=== PATIENT | female | born 1980 | race Two or more races ===

== ENCOUNTER 2016-05-29 15:31 | Emergency (ER) | payer OTHER ==
[~2016-05-29 15:31] MED LIST: DOXY100C2 PO; HYDR-971 PO; METHERGINE PO; NAPR500T8 PO; PNV1TABL25 PO
[2016-05-29 16:26] VITALS: BP 101/62
[2016-05-29] MEDS ORDERED: PRED20TA PO (16:32)
[2016-05-29] MEDS ORDERED: TRIA15OI TP (16:32)
--- NOTE | 2016-05-29 16:33 | PHYS DOC ---
Adult General Chief Complaint Chief Complaint: ITCHING HPI HPI Patient is a 35 year old who presents emergency Department stating rash on her lower back area down bilateral legs. She states she's had this rash for the last week. She denies new detergent, soaps, clothing or medication. Patient denies nausea, vomiting. Patient denies taking medication for the rash. Review of Systems Review of Systems Constitutional: Denies fever or chills [] Eyes: Denies change in visual acuity, redness, or eye pain [] HENT: Denies nasal congestion or sore throat [] Respiratory: Denies cough or shortness of breath [] Cardiovascular: No additional information not addressed in HPI [] GI: Denies abdominal pain, nausea, vomiting, bloody stools or diarrhea [] Musculoskeletal: Denies back pain or joint pain [] Integument: rash denies skin lesions [] Neurologic: Denies headache, focal weakness or sensory changes [] Allergies Allergies Allergies Coded Allergies Type Severity Reaction Last Updated Verified No Known Drug Allergies 07/27/14 No Physical Exam Physical Exam Constitutional: Well developed, well nourished, no acute distress, non-toxic appearance. [] HENT: Normocephalic, atraumatic, bilateral external ears normal, oropharynx moist, no oral exudates, nose normal. [] Eyes: PERRLA, EOMI, conjunctiva normal, no discharge. [] Neck: Normal range of motion, no tenderness, supple, no stridor. [] Cardiovascular:Heart rate regular rhythm, no murmur [] Lungs & Thorax: Bilateral breath sounds clear to auscultation [] Skin: Warm, dry, no erythema, Scabbed rash noted to the back area and bilateral lower legs. No drainage, discharge or redness noted to the sites. Back: No tenderness Extremities: No tenderness, no cyanosis, no clubbing, ROM intact, no edema. [] Neurologic: Alert and oriented X 3, normal motor function, normal sensory function, no focal deficits noted. [] Psychologic: Affect normal, judgement normal, mood normal. [] EKG EKG [] Radiology/Procedures Radiology/Procedures [] Course & Med Decision Making Course & Med Decision Making Pertinent Labs and Imaging studies reviewed. (See chart for details) Patient will be provided with prednisone, recommended benadryl over the counter as needed for itching. Recommended keeping the areas clean dry and cool. Patient will be discharged home in stable condition. Signs and symptoms to return to the emergency department has been provided. [] Dragon Disclaimer Dragon Disclaimer This electronic medical record was generated, in whole or in part, using a voice recognition dictation system. Departure Departure Impression: Primary Impression: Rash and nonspecific skin eruption Disposition: HOME, SELF-CARE Condition: STABLE Referrals: NO PCP (PCP) Patient Instructions: Rash, [id number] Additional Instructions: You have been evaluated for a rash Benadryl 25 mg every 4 hours as needed for itching Medication as prescribed Followup with primary care provider in 7-10 days Return to emergency department as needed for signs and symptoms that become worse. Scripts Triamcinolone Acetonide (Triamcinolone Acetonide 0.1% Oint)15 Gm Oint...g.1 Lauren TP BID WOUND CARE #1 TUBE Prov:LIDIA MCKOY NP 05/29/16 Prednisone 20 Mg [id number] Mg PO DAILY #10 TAB Prov:LIDIA MCKOY NP 05/29/16 LIDIA MCKOY NP May 29, 2016 16:33
== END 2016-05-29 16:41 | disposition home or self-care (01) ==
LOC: ER 15:31
DX: R21 Rash and other nonspecific skin eruption (principal)
CPT/HCPCS: 99283

== ENCOUNTER 2017-03-10 13:55 | Emergency (ER) | payer BC, OTHER ==
[~2017-03-10] VITALS: Ht 152.4 cm; Wt 49.0 kg
[~2017-03-10 13:55] MED LIST changes: +PRED20TA PO; +TRIA15OI TP
[2017-03-10 14:50] VITALS: BP 97/68
[2017-03-10] MEDS ORDERED: BENZ9GEL3 MM (15:26)
--- NOTE | 2017-03-10 15:26 | PHYS DOC ---
Past Medical History Past Medical History: No Pertinent History Past Surgical History: No Surgical History Alcohol Use: None Drug Use: None Adult General Chief Complaint Chief Complaint: DENTAL PROBLEM HPI HPI Patient is a 36 year old female presents to the ED complaining of sores in mouth x 1 week. States she has never had these before. Started on cheek and now has in upper lip. Describes as sharp. Rates as 8/10. Denies fever, nausea/ vomiting, difficulty swallowing, tongue swelling, headache or chest pain, shortness of breath. Review of Systems Review of Systems Constitutional: Denies fever or chills [] Eyes: Denies change in visual acuity, redness, or eye pain [] HENT: Denies nasal congestion or sore throat. Complains of sores in mouth. [] Respiratory: Denies cough or shortness of breath [] Cardiovascular: No additional information not addressed in HPI [] GI: Denies abdominal pain, nausea, vomiting, bloody stools or diarrhea [] : Denies dysuria or hematuria [] Musculoskeletal: Denies back pain or joint pain [] Integument: Denies rash or skin lesions [] Neurologic: Denies headache, focal weakness or sensory changes [] Endocrine: Denies polyuria or polydipsia [] Allergies Allergies Allergies Coded Allergies Type Severity Reaction Last Updated Verified No Known Drug Allergies 07/27/14 No Physical Exam Physical Exam Constitutional: Well developed, well nourished, no acute distress, non-toxic appearance. [] HENT: Normocephalic, atraumatic, bilateral external ears normal, oropharynx moist, ORAL ULCERS TO LEFT BUCCAL MUCOSA AND INNER UPPER LIP, nose normal. [] Eyes: PERRLA, EOMI, conjunctiva normal, no discharge. [] Neck: Normal range of motion, no tenderness, supple, no stridor. [] Cardiovascular:Heart rate regular rhythm, no murmur [] Lungs & Thorax: Bilateral breath sounds clear to auscultation [] Abdomen: Bowel sounds normal, soft, no tenderness, no masses, no pulsatile masses. [] Skin: Warm, dry, no erythema, no rash. [] Back: No tenderness, no CVA tenderness. [] Extremities: No tenderness, no cyanosis, no clubbing, ROM intact, no edema. [] Neurologic: Alert and oriented X 3, normal motor function, normal sensory function, no focal deficits noted. [] Psychologic: Affect normal, judgement normal, mood normal. [] Current Patient Data Vital Signs Vital Signs Date Time Temp Pulse Resp B/P (MAP) Pulse Ox O2 Delivery O2 Flow Rate FiO2 03/10/17 14:50 98.6 82 16 99 Room Air 98.6 EKG EKG [] Radiology/Procedures Radiology/Procedures [] Course & Med Decision Making Course & Med Decision Making Pertinent Labs and Imaging studies reviewed. (See chart for details) []Will prescribe oragel and Magic mouthwash for patient's relief. Discussed follow-up and reasons to return to the ED. Patient understands and agrees with plan. Family at bedside. Dragon Disclaimer Dragon Disclaimer This electronic medical record was generated, in whole or in part, using a voice recognition dictation system. Departure Departure Impression: Primary Impression: Aphthous ulcer Disposition: HOME, SELF-CARE Condition: STABLE Referrals: NO PCP (PCP) AMEENA FREY MD Patient Instructions: Oral Ulcers Scripts Benzocaine (ORAL ANALGESIC) 9 Gm Gel..gram. 9 GM MM PRN, #1 EACH Prov: DELPHINE PATTON 03/10/17 DELPHINE PATTON Mar 10, 2017 15:26
== END 2017-03-10 15:34 | disposition home or self-care (01) ==
LOC: ER 13:55
DX: K12.0 Recurrent oral aphthae (principal)
CPT/HCPCS: 99282

== ENCOUNTER → 2019-06-25 | Outpatient (CLI) | payer BC ==
[~2019-06-25] MED LIST changes: +BENZ9GEL3 MM; +HYDR-3164 PO; -HYDR-971 PO
--- NOTE | 2019-06-25 10:37 | RAD ---
EXAM: Obstetrics sonogram. HISTORY: Large for dates. TECHNIQUE: Sonographic imaging of a gravid uterus was performed. COMPARISON: None. FINDINGS: There is a single intrauterine fetus in breech presentation with a normal heart rate of 153 beats per minute. The amniotic fluid index is normal at 11.4 cm. There is an anterior placenta without evidence of placenta previa. The cervix is closed and measures 4.1 cm in length. The biparietal diameter is 3.63 cm, corresponding with 17 weeks and 1 day. The head circumference is 13.58 cm, corresponding with 17 weeks and 0 days. The abdominal sequential is 11.31 cm, corresponding with 17 weeks and 1 day. The femoral length is 2.40 cm, corresponding with 17 weeks and 2 days. The estimated gestational age patient combined also measurements is 17 weeks and 1 day and the estimated weight is 184 g. The estimated due date is 12/02/2019. IMPRESSION: 1. Single intrauterine fetus with normal heart rate and gestational age patient ultrasound measurements of 17 weeks and 1 day. The estimated gestational age based on LMP is 15 weeks and 0 days. 2. Note is made that a formal anatomy survey can be performed at 18-20 weeks gestation. Electronically signed by: Evelia Cardoza MD (06/25/2019 10:34 AM) [facility] [place]
== END | disposition home or self-care (01) ==
LOC: US 09:01
PROVIDERS: ATTEND Family Medicine
DX: O09.92 Supervision of high risk pregnancy, unspecified, second trimester (principal); O32.1XX0 Maternal care for breech presentation, not applicable or unspecified; Z3A.17 17 weeks gestation of pregnancy
CPT/HCPCS: 76815

== ENCOUNTER → 2019-10-22 | Outpatient (CLI) | payer OTHER ==
--- NOTE | 2019-10-22 17:31 | RAD ---
OB ultrasound greater than 14 weeks HISTORY: Third trimester, they'll p.m. 03/12/2019 corresponds with 32 weeks 0 day gestational age and estimated date confinement of December 17, 2019. Sonographic examination of the was performed by transabdominal technique multiple static images were obtained. FINDINGS: There is a single live intrauterine the heartbeat is confirmed at 141 beats for minute. Evaluation of structures is limited by the advanced gestational age. The maternal cervix appears normal measures 3.2 cm. The stomach appears normal. The amniotic fluid volume appears normal in fluid index measures 14.6 cm. There is a anterior placenta. The measurements as follows: BPD 7.7 cm 30 weeks 5 days Head circumference 27.5 cm 30 weeks 0 days Measurements 20.4 cm 30 weeks 3 days Femur length 6.5 cm 33 weeks 3 days Estimated size by ultrasound 31 weeks 5 days estimated confinement December 19, 2019. Estimated weight 4 lbs. 5 oz. +/- 10 ounces. Estimated weight percentile 49 percent. IMPRESSION: 1. Single live intrauterine at 32 weeks 0 days gestational age by LMP measures 31 weeks 5 days gestational age by ultrasound. 2. There has been less than expected growth since the June 25, 2019 ultrasound. Recommend high school english teacher consultation. Electronically signed by: Ori Andersen III, MD (10/22/2019 5:29 PM) [id number]
== END | disposition home or self-care (01) ==
LOC: US 13:48
PROVIDERS: ATTEND Family Medicine
DX: Z34.03 Encounter for supervision of normal first pregnancy, third trimester (principal); N83.202 Unspecified ovarian cyst, left side; Z90.710 Acquired absence of both cervix and uterus; Z90.721 Acquired absence of ovaries, unilateral
CPT/HCPCS: 76805

== ENCOUNTER 2019-11-26 06:06 | Inpatient (IN) | payer OTHER ==
[~2019-11-26] VITALS: Ht 152.4 cm; Wt 59.9 kg
[2019-11-26] MEDS ORDERED: BUTORPHANOL 2 MG/ML VIAL. IVP PRN (06:15)
[2019-11-26] MEDS ORDERED: ACETAMINOPHEN 325 MG TABLET. PO PRN (06:15)
[2019-11-26] MEDS ORDERED: TERBUTALINE 1 MG/ML VIAL. SQ PRN (06:15)
[2019-11-26] MEDS ORDERED: LIDOCAINE 1% PF 30 ML VIAL. INJ PRN (06:15)
[2019-11-26] MEDS ORDERED: ONDANSETRON PF 4 MG/2 ML VIAL. IVP PRN (06:15)
[2019-11-26] MEDS ORDERED: 0.9 % SODIUM CHLORIDE 10 ML DISP.SYRIN. IV PRN (06:15)
[2019-11-26] MEDS ORDERED: fentaNYL PF VIAL 100 MCG/2 ML VIAL IVP PRN (06:15)
[2019-11-26] MEDS ORDERED: IBUPROFEN 400 MG TABLET. PO PRN (06:15)
[2019-11-26] MEDS ORDERED: OXYTOCIN 30 UNIT/500 ML PREMIX 500 ML IV PRN ×2 (06:15)
[2019-11-26] MEDS ORDERED: MAG HYDROX/ALUMINUM HYD/SIMETH 30 ML ORAL.SUSP PO PRN ×2 (06:15→11:00)
[2019-11-26] MEDS ORDERED: IV RINGERS,LACTATED 1000ML 1,000 ML IV PRN (06:15)
[2019-11-26 07:14] VITALS: BP 128/71
[2019-11-26 07:26] LABS: BILIRUBIN,URINE NEGATIVE (NEG); CLARITY,URINE TURBID; COLOR,URINE YELLOW; NITRITE,URINE NEGATIVE (NEG); PROTEIN,URINE 100 mg/dL (NEG-TRACE)
[2019-11-26 07:27] LABS: BASO % 0 % (0-3); EOS # 0.1 x10^3/uL (0.0-0.7); EOS % 1 % (0-3); HEMOGLOBIN 11.4 g/dL (12.0-15.5); LYMPH # 1.1 x10^3/uL (1.0-4.8); LYMPH % 17 % (24-48); MEAN CORPUSCULAR HEMOGLOBIN 32 pg (25-35); MEAN CORPUSCULAR HGB CONC 35 g/dL (31-37); MEAN CORPUSCULAR VOLUME 93 fL (79-100); MONO # 0.7 x10^3/uL (0.0-1.1); MONO % 10 % (0-9); NEUT # 4.7 x10^3/uL (1.8-7.7); NEUT % 71 % (31-73); PLATELET COUNT 149 x10^3/uL (140-400); RED BLOOD COUNT 3.57 x10^6/uL (3.50-5.40); RED CELL DISTRIBUTION WIDTH 13.2 % (11.5-14.5); WHITE BLOOD COUNT 6.6 x10^3/uL (4.0-11.0)
[2019-11-26 07:39] LABS: BACTERIA,URINE MANY /HPF (0-FEW); SQUAMOUS EPITHELIAL CELL,UR MOD /LPF; WBC,URINE 20-40 /HPF (0-4)
[2019-11-26] MEDS ORDERED: MMR per PROTOCOL. MC PRN (11:00)
[2019-11-26] MEDS ORDERED: BENZOCAINE 20% TOPICAL AEROSOL SPRAY 57GM CAN. TP PRN (11:00)
[2019-11-26] MEDS ORDERED: ZOLPIDEM 5 MG TABLET. PO PRN (11:00)
[2019-11-26] MEDS ORDERED: PHENYLEPH/MINERAL OIL/PETROLAT RECTAL OINTMENT TUBE. RC PRN (11:00)
[2019-11-26] MEDS ORDERED: HYDROCORTISONE 1% TOPICAL OINTMENT 30GM TUBE. TP PRN (11:00)
[2019-11-26] MEDS ORDERED: MAGNESIUM HYDROXIDE 2,400 MG/30 ML ORAL.SUSP. PO PRN (11:00)
[2019-11-26] MEDS ORDERED: TDaP (Adacel) per PROTOCOL. MC PRN (11:00)
[2019-11-26] MEDS ORDERED: diphenhydrAMINE HCL 25 MG CAPSULE PO PRN (11:00)
[2019-11-26] MEDS ORDERED: SIMETHICONE 80 MG TAB.CHEW PO PRN (11:00)
[2019-11-26] MEDS ORDERED: MULTIVITAMIN with MINERAL TABLET. PO SCH (11:00)
[2019-11-26] MEDS ORDERED: HYDROcodone/APAP 5/325MG 1 TAB TABLET PO PRN ×2 (11:00)
[2019-11-26] MEDS: IBUPROFEN 400 MG TABLET. PO SCH ×2 (12:44→20:49)
[2019-11-26 13:00] VITALS: BP 106/73
--- NOTE | 2019-11-26 13:12 | PDOC1 ---
OB - History Hx of Present Care: Good Care Ultrasounds: Normal mid trimester US Obstetrical Complications: Other (Advanced maternal age) Medical Complications: None Past Family/Social History * Past Medical, Surgical, Family and Obstetric Histories reviewed from chart. Blood Type: O+ Rubella: Immune RPR/VDRL: Negative GBS Status: Negative HBsAG: Negative OB - Chief Complaint & HPI Date of Admission: Date of Admission: Nov 26, 2019 at 06:06 Chief Complaint/History : 5 Para: 3 Reason for admission: active labor Indication for induction: history of rapid labor Admission Nurse Assessment Rev: Yes OB - Admission Exam Physical Exam Vitals: VS - Last 72 Hours, by Label Date Time Temp Pulse Resp B/P (MAP) Pulse Ox O2 Delivery O2 Flow Rate FiO2 11/26/19 07:14 97.7 97 18 128/71 (90) 96 Room Air 97.7 HEENT: Normal, Nasal Mucosa Normal, Oropharynx Normal, Moist Membranes, Fontanelles Normal Lungs: Clear, Equal Abdomen: Gravid Extremities: Normal Pulses, No tenderness or swelling Reflexes: Normal Cervical Dilatation: 5cm Effacement: 25% Membranes: Intact Amniotic Fluid: Clear Accelerations: Accelerations Present Decelerations: No decelerations Short Term Variability: Present Illuminator Variability: Moderate Contractions on Admission: 6-10 Minutes Apart Intensity: Mild AMEENA FREY MD Nov 26, 2019 13:12
--- NOTE | 2019-11-26 13:26 | OP ---
DATE OF SURGERY: DELIVERY NOTE CLINICAL COURSE: This patient is a 39-year-old [place] female admitted for term induction, but arrived in active labor with dilatation of 5 cm. She had risk of advanced maternal age [age] years old. She progressed through labor after artificial rupture of membranes with clear fluid and bloody show rapidly proceeding to complete prior to epidural anesthesia and without Pitocin augmentation. She delivered a viable female infant with Apgars of 9, 9 and 9. was delivered. Head was suctioned. Body was delivered, 30 seconds of cord resuscitation was accomplished. Cord was clamped and transected. Infant was handed off. Placenta was delivered intact with 3-vessel cord, part of the cord did detach prior to delivery of placenta but remainder of cord was grasped and placenta was delivered. Uterus was firm with Pitocin and palpation. There was approximately 300 mL blood loss. Second-degree midline laceration was noted and was sutured with 3-0 chromic in a running locking fashion with good hemostasis. Local anesthesia was used for repair. Mother and baby to recovery in stable condition. AMEENA FREY MD DR: RENEE/angela JOB#: [id number] / [id number]
[2019-11-26 15:00] VITALS: BP 107/72
[2019-11-26] MEDS ORDERED: FERROUS SULFATE 325 MG TABLET. PO SCH (17:00)
[2019-11-26 21:16] VITALS: BP 104/87
[2019-11-27 00:54] VITALS: BP 104/68
[2019-11-27 04:30] LABS: BASO % 0 % (0-3); EOS # 0.1 x10^3/uL (0.0-0.7); EOS % 1 % (0-3); HEMATOCRIT 28.5 % (36.0-47.0); HEMOGLOBIN 9.8 g/dL (12.0-15.5); LYMPH # 1.2 x10^3/uL (1.0-4.8); LYMPH % 12 % (24-48); MEAN CORPUSCULAR HEMOGLOBIN 32 pg (25-35); MEAN CORPUSCULAR HGB CONC 35 g/dL (31-37); MEAN CORPUSCULAR VOLUME 93 fL (79-100); MONO % 10 % (0-9); NEUT % 77 % (31-73); PLATELET COUNT 140 x10^3/uL (140-400); RED BLOOD COUNT 3.06 x10^6/uL (3.50-5.40); RED CELL DISTRIBUTION WIDTH 13.1 % (11.5-14.5); WHITE BLOOD COUNT 10.3 x10^3/uL (4.0-11.0)
[2019-11-27] MEDS: IBUPROFEN 400 MG TABLET. PO SCH (04:47)
[2019-11-27 04:50] VITALS: BP 119/77
[2019-11-27 11:13] VITALS: BP 104/72
--- NOTE | 2019-11-27 12:15 | PDOC3 ---
OB DISCHARGE SUMMARY DATE OF ADMISSION: 11/26/2019 DATE OF DISCHARGE: 11/27/2019 REASON FOR ADMISSION: Onset of labor INTRAPARTUM PROCEDURES: Spontanous Vag Deliv DISCHARGE INFORMATION: Activity (no sexual activity for 6 weeks) HOSPITAL COURSE routine, tolerating diet decrease bleeding good pain control see MRAD CONDITION AT DISCHARGE Stable AMEENA FREY MD Nov 27, 2019 12:15
[2019-11-27] MEDS ORDERED: HYDR-2761 PO (12:20)
[2019-11-27] MEDS ORDERED: FERR325T14 PO (12:20)
[2019-11-27] MEDS ORDERED: DOCU-109 PO (12:20)
[2019-11-27] MEDS ORDERED: IBUP-1060 PO (12:20)
[2019-11-27] MEDS ORDERED: DIPH,PERTUSS(ACELL),TET VAC/PF 0.5 ML SYRINGE. VAX IM ONE (12:30)
[2019-11-27 16:00] VITALS: BP 102/68
--- NOTE | 2019-11-27 16:40 | NUR ---
Discharge and follow instructions reviewed with pt and her via the [employer] mail handler assistant phone. Rx x4 given to pt. Pt and verbalized understanding and denied any questions. Pt ambulated out of the hospital with her , and staff by her side.
== END 2019-11-27 16:40 | disposition home or self-care (01) | DRG 807 ==
LOC: 3 SO LND 06:06 → 3 NORTH 13:00
PROVIDERS: ADMIT Family Medicine; ATTEND Family Medicine
PROC: 10E0XZZ Delivery of Products of Conception, External Approach (ICD-10-PCS; principal; 2019-11-26)
PROC: 0KQM0ZZ Repair Perineum Muscle, Open Approach (ICD-10-PCS; 2019-11-26)
PROC: 10907ZC Drainage of Amniotic Fluid, Therapeutic from Products of Conception, Via Natural or Artificial Opening (ICD-10-PCS; 2019-11-26)
PROC: 3E0234Z Introduction of Serum, Toxoid and Vaccine into Muscle, Percutaneous Approach (ICD-10-PCS; 2019-11-27)
DX: O62.3 Precipitate labor (principal); Z37.0 Single live birth; O70.1 Second degree perineal laceration during delivery; Z3A.39 39 weeks gestation of pregnancy; Z20.828 Contact with and (suspected) exposure to other viral communicable diseases; Z23 Encounter for immunization
CPT/HCPCS: 36415; 81001; 85025; 86592; 86850; 86900; 86901; 87086; 90471; 90715; J2590; J3490; J7120; G0378; U0003-CS